=== PATIENT | male | born 1990 | race Caucasian/White ===

== ENCOUNTER 2019-01-04 11:35 | Emergency (ER) | payer MEDICAID ==
[~2019-01-04] VITALS: Ht 177.8 cm; Wt 85.0 kg
[2019-01-04] MEDS ORDERED: naloxone 0.4 mg/ml inj IV ONE (13:50)
--- NOTE | 2019-01-04 14:00 | NUR ---
PT'S RESP RATE ABOUT 9/MIN, NOTIFIED, ORDER PLACED FOR SECOND NARCAN DOSE. PT VERY SOMNOLENT
--- NOTE | 2019-01-04 14:15 | NUR ---
PT HAD NARCAN DOSE, RESP RATE APPROX 12 AT THIS TIME, STILL DROWSY, BUT AWAKENS EASIER NOW. FAMILY MEMBERS AT BEDSIDE
--- NOTE | 2019-01-04 16:14 | NUR ---
PT READY FOR DISCHARGE BUT WILL NOT AWAKEN LONG ENOUGH TO STAND TO LEAVE, STILL VERY SOMNOLENT. NOTIFIED, WAS IN TO SEE PT. SAID TO LET PT SLEEP AT THIS TIME-
[2019-01-04] MEDS ORDERED: normal saline 1000ml 1,000 ML IV ONE (16:35)
[2019-01-04 18:14] VITALS: BP 100/59
== END 2019-01-04 18:19 | disposition home or self-care (01) ==
LOC: ER 11:36
DX: T40.1X1A Poisoning by heroin, accidental (unintentional), initial encounter (principal); F32.9 Major depressive disorder, single episode, unspecified; F15.90 Other stimulant use, unspecified, uncomplicated; F11.90 Opioid use, unspecified, uncomplicated; Y92.89 Other specified places as the place of occurrence of the external cause
CPT/HCPCS: 96374; 99283; J2310; J7030

== ENCOUNTER 2019-05-10 12:14 | Emergency (ER) | payer MEDICAID, OTHER ==
[~2019-05-10] VITALS: Ht 304.8 cm; Wt 77.3 kg
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
[2019-05-10 14:04] LABS: HIV ANTIBODY 1&2 RAPID NON-REACTIVE (Neg)
[2019-05-10 14:13] VITALS: BP 129/75
[2019-05-11 08:10] LABS: HBSAG SCREEN Negative (Negative); HEPATITIS C ANTIBODY >11.0 s/co ratio (0.0-0.9)
== END 2019-05-10 14:12 | disposition home or self-care (01) ==
LOC: ER 12:15
DX: Z00.00 Encounter for general adult medical examination without abnormal findings (principal); F15.90 Other stimulant use, unspecified, uncomplicated; F11.90 Opioid use, unspecified, uncomplicated; F14.90 Cocaine use, unspecified, uncomplicated; F32.9 Major depressive disorder, single episode, unspecified; F12.90 Cannabis use, unspecified, uncomplicated
CPT/HCPCS: 36415; 86703; 86706; 86803; 87340; 99283

== ENCOUNTER 2019-08-21 03:01 | Emergency (ER) | payer MEDICAID, OTHER ==
[~2019-08-21] VITALS: Ht 177.8 cm; Wt 75.0 kg
[2019-08-21] MEDS ORDERED: normal saline 1000ML IV soln IVB ONE (03:20)
[2019-08-21] MEDS ORDERED: naloxone 0.4 mg/ml inj IV ONE (03:20)
[2019-08-21 05:00] VITALS: BP 138/85
== END 2019-08-21 05:05 | disposition home or self-care (01) ==
LOC: ER 03:02
DX: B34.9 Viral infection, unspecified (principal); F12.90 Cannabis use, unspecified, uncomplicated; F15.90 Other stimulant use, unspecified, uncomplicated; F14.90 Cocaine use, unspecified, uncomplicated; F11.90 Opioid use, unspecified, uncomplicated; Z59.0 Homelessness
CPT/HCPCS: 87502; 87503; 96374; 99283; J2310; J7030

== ENCOUNTER 2019-12-20 08:19 | Emergency (ER) | payer SELFPAY ==
[~2019-12-20] VITALS: Ht 177.8 cm; Wt 66.0 kg
--- NOTE | 2019-12-20 09:25 | NUR ---
PATIENT SWABBED FOR COVID TEST. EKG PERFORMED.
[2019-12-20 10:05] VITALS: BP 129/82
== END 2019-12-20 10:07 | disposition home or self-care (01) ==
LOC: ER 08:19
DX: J06.9 Acute upper respiratory infection, unspecified (principal); R05 Cough; Z20.828 Contact with and (suspected) exposure to other viral communicable diseases; J34.89 Other specified disorders of nose and nasal sinuses; R09.81 Nasal congestion; F17.200 Nicotine dependence, unspecified, uncomplicated; F12.90 Cannabis use, unspecified, uncomplicated; F15.90 Other stimulant use, unspecified, uncomplicated; F14.90 Cocaine use, unspecified, uncomplicated; F11.90 Opioid use, unspecified, uncomplicated; Z72.89 Other problems related to lifestyle
CPT/HCPCS: 36415; 93005; 99284; U0003

== ENCOUNTER 2020-03-18 12:05 | Emergency (ER) | payer MEDICAID, SELFPAY ==
[~2020-03-18 12:05] MED LIST: LIDOcaine 1% W/epiNEPHrine 1:200,000 10ml vial ONE
[2020-03-18 12:06] VITALS: BP 115/69
[2020-03-18] MEDS ORDERED: TETanus/Pertussis (Acell)/Diphther VAC/PF (Tdap-Adult) 0.5ml syringe IMVAC ONE (12:15)
[2020-03-18] MEDS ORDERED: bacitracin 15gm ointment TP ONE (12:15)
[2020-03-18] MEDS ORDERED: LIDOcaine 1% W/epiNEPHrine 1:200,000 10ml vial IJ ONE (12:15)
[2020-03-18] MEDS ORDERED: CEPH250T PO (13:39)
== END 2020-03-18 13:55 | disposition home or self-care (01) ==
LOC: ER 12:06
DX: S51.812A Laceration without foreign body of left forearm, initial encounter (principal); S01.81XA Laceration without foreign body of other part of head, initial encounter; F12.90 Cannabis use, unspecified, uncomplicated; F15.90 Other stimulant use, unspecified, uncomplicated; F11.90 Opioid use, unspecified, uncomplicated; F14.90 Cocaine use, unspecified, uncomplicated; Z59.0 Homelessness; Z79.899 Other long term (current) drug therapy; X58.XXXA Exposure to other specified factors, initial encounter; Y93.89 Activity, other specified; Y92.89 Other specified places as the place of occurrence of the external cause; Y99.8 Other external cause status
CPT/HCPCS: 12001; 12011; 90471; 99284

== ENCOUNTER 2020-08-26 16:31 | Emergency (ER) | payer MEDICAID, OTHER ==
[~2020-08-26] VITALS: Ht 177.8 cm; Wt 84.0 kg
[2020-08-26 16:34] VITALS: BP 122/76
[2020-08-26] MEDS ORDERED: naloxone 0.4 mg/ml inj NAS ONE (16:50)
[2020-08-26 17:17] LABS: BASOPHILS % (AUTO) 0.3 % (0-1); EOSINOPHILS # (AUTO) 0.1 X10'3 (0-0.9); EOSINOPHILS % (AUTO) 0.7 % (0-6); HEMATOCRIT 31.2 % (42.0-52.0); HEMOGLOBIN 10.9 g/dl (14.0-17.9); LYMPHOCYTES # (AUTO) 2.7 X10'3 (1.1-4.8); LYMPHOCYTES % (AUTO) 33.5 % (21-51); MEAN CORPUSCULAR HEMOGLOBIN 30.1 PG (27.0-31.0); MEAN CORPUSCULAR HGB CONC 34.9 g/dL (33.0-36.5); MEAN CORPUSCULAR VOLUME 86.2 FL (78-98); MEAN PLATELET VOLUME 7.1 FL (7.4-10.4); MONOCYTES # (AUTO) 0.6 X10'3 (0-0.9); MONOCYTES % (AUTO) 7.9 % (2-12); NEUTROPHILS # (AUTO) 4.7 X10'3 (1.8-7.7); NEUTROPHILS % (AUTO) 57.6 % (42-75); PLATELET COUNT 228 X10'3 (140-440); RED BLOOD COUNT 3.62 X10'6 (4.70-6.10); RED CELL DISTRIBUTION WIDTH 13.8 % (11.5-14.5); WHITE BLOOD COUNT 8.1 X10'3 (4.5-11.0)
[2020-08-26 17:26] LABS: ALANINE AMINOTRANSFERASE 163 U/L (12-78); ALBUMIN 3.5 G/DL (3.4-5.0); ALBUMIN/GLOBULIN RATIO 0.8 (1.1-1.5); ALKALINE PHOSPHATASE 100 IU/L (46-116); ANION GAP 9 (8-16); ASPARTATE AMINO TRANSFERASE 91 U/L (10-37); BILIRUBIN,TOTAL 0.4 MG/DL (0.1-1.0); BLOOD UREA NITROGEN 15 MG/DL (7-18); BUN/CREATININE RATIO 15.8 (5.4-32.0); CHLORIDE 103 MMOL/L (99-107); CREATININE 0.95 MG/DL (0.60-1.10); GLUCOSE 90 MG/DL (70-104); POTASSIUM 3.9 MMOL/L (3.5-5.1); SODIUM 143 MMOL/L (135-145); TOTAL CARBON DIOXIDE 31.1 MMOL/L (24-32); TOTAL PROTEIN 7.8 G/DL (6.4-8.2); eGFR > 90 ML/MIN
[2020-08-26] MEDS ORDERED: NALO4SPR BOTHNARES (18:17)
--- NOTE | 2020-08-26 18:33 | NUR ---
Pt. left without discharge instructions, pt. called, message left with pt.'s significant other for pt. to come back for Rx for Narcan.
== END 2020-08-26 18:20 | disposition home or self-care (01) ==
LOC: ER 16:32
DX: T40.1X1A Poisoning by heroin, accidental (unintentional), initial encounter (principal); F12.90 Cannabis use, unspecified, uncomplicated; F15.90 Other stimulant use, unspecified, uncomplicated; F14.90 Cocaine use, unspecified, uncomplicated; F11.90 Opioid use, unspecified, uncomplicated; F19.90 Other psychoactive substance use, unspecified, uncomplicated; Z59.0 Homelessness; Z72.89 Other problems related to lifestyle; Z79.899 Other long term (current) drug therapy; Y92.89 Other specified places as the place of occurrence of the external cause
CPT/HCPCS: 36415; 71045; 80053; 85025; 93005; 99285

== ENCOUNTER 2022-07-17 15:56 | Emergency (ER) | payer MEDICAID ==
[~2022-07-17] VITALS: Ht 177.8 cm; Wt 79.0 kg
[~2022-07-17 15:56] MED LIST changes: -LIDOcaine 1% W/epiNEPHrine 1:200,000 10ml vial ONE; +NALO4SPR BOTHNARES
[2022-07-17 16:42] VITALS: BP 134/86
[2022-07-17] MEDS ORDERED: BUPR1FIL3 SL (18:45)
--- NOTE | 2022-07-17 19:34 | NUR ---
DC INSTRUCTIONS PRINTED PER DR. CHUA. STATED " PT IS MEDICALLY CLEARED AND MEDICATION WILL BE FAXED TO [facility]". PT DISCHARGED FROM ER. DR. CHUA STATED " I COULD NOT FAX MEDICATION TO PHARMACY YOU MUST CALL PATIENT BACK TO THE ER". PTS UPDATED NUMBER CALLED . PT DID NOT ANSWER PHONE AND VOICEMAIL IS FULL. WILL ATTEMPT TO CALL PATIENT AGAIN.
== END 2022-07-17 18:57 | disposition home or self-care (01) ==
LOC: ER 15:58
DX: Z00.00 Encounter for general adult medical examination without abnormal findings (principal); F12.90 Cannabis use, unspecified, uncomplicated; F15.20 Other stimulant dependence, uncomplicated; F14.90 Cocaine use, unspecified, uncomplicated; Z59.00 Homelessness unspecified
CPT/HCPCS: 99283